=== PATIENT | female | born 1995 ===

== ENCOUNTER 2025-04-05 14:24 | Outpatient (CLI) | payer OTHER | END 2025-04-05 14:25 | disposition home or self-care (01) | LOC: PRENATAL 14:24 | PROVIDERS: ATTEND Obstetrics & Gynecology Maternal & Fetal Medicine | DX: O44.00 Complete placenta previa NOS or without hemorrhage, unspecified trimester (principal); Z3A.20 20 weeks gestation of pregnancy ==